=== PATIENT | male | born 1975 | race Caucasian/White ===

== ENCOUNTER 2020-07-07 11:53 | Emergency (ER) | payer SELFPAY ==
[2020-07-07] MEDS ORDERED: ONDANSETRON 4 MG/2 ML INJ IV ONE (12:11)
[2020-07-07] MEDS ORDERED: methylPREDNISolone Sod Succinate 125 MG/2 ML INJ IV ONE (12:11)
[2020-07-07] MEDS ORDERED: SODIUM CHLORIDE 0.9% 1000 ML 1,000 ML IV ONE ×2 (12:11→12:12)
[2020-07-07] MEDS ORDERED: FAMOTIDINE 20 MG/2 ML INJ IV ONE (12:11)
--- NOTE | 2020-07-07 12:36 | Emergency Department Report ---
HPI - General Chief Complaint: Allergic Reaction Time Seen by Provider: 07/07/20 11:59 - HPI HPI: 45-year male with a history of chronic headaches presents to the hospital complaints of allergic reaction to unknown allergen. Patient is allergy rash that started slightly after eating chicken and broccoli. He experienced generalized rash/hives with pruritus, nausea, without vomiting, and lightheadedness. He denies throat tightness, tongue swelling, shortness of breath, or wheezing. Patient received Benadryl 50 mg in route with improvement in pruritus but nausea persists. Patient states 4 years ago he had a similar reaction to an unknown substance and was treated at [facility]. Patient currently states that recommend twice a day for chronic headaches and has been taking the same vitamins for about a month. He denies any exposure to any new substances, drugs, or food ED Past Medical Hx - Past Medical History Hx Hypertension: Yes Additional medical history: high cholestrol - Social History Smoking Status: Never Smoker Substance Use Type: Alcohol - Medications Home Medications: Home Medications Medication Instructions Recorded Confirmed Last Taken Type Acetaminophen [Tylenol Arthritis] 650 mg PO Q6HR PRN #30 tablet.er 04/06/18 Unknown Rx Ibuprofen [Motrin] 600 mg PO Q8H PRN #30 tablet 04/06/18 Unknown Rx Metoclopramide [Reglan] 10 mg PO QID PRN #30 tablet 04/06/18 Unknown Rx Famotidine [Pepcid] 20 mg PO BID #10 tablet 07/07/20 Unknown Rx diphenhydrAMINE [Benadryl CAP] 50 mg PO Q8HR PRN #20 capsule 07/07/20 Unknown Rx predniSONE [Deltasone] 20 mg PO BID #10 tab 07/07/20 Unknown Rx ED Review of Systems ROS: Stated complaint: ALLERGIC REACTION Other details as noted in HPI Comment: All other systems reviewed and negative Physical Exam - Physical Exam Vital Signs: Vital Signs 07/07/20 12:05 Temperature 97.3 F L Pulse Rate 63 Respiratory 18 Rate Blood Pressure 92/55 [Right] O2 Sat by Pulse 99 Oximetry Physical Exam: General: No acute distress Head: Atraumatic Eyes: normal appearance ENT: Moist mucous membranes, no tongue swelling or posterior pharyngeal swelling. No stridor Neck: Normal appearance, no midline tenderness Chest: Clear to auscultation bilaterally CV: Regular rate and rhythm Abdomen: Soft, normal bowel sounds, nontender, nondistended, no rebound or guarding Back: Normal inspection Extremity: Normal inspection, full range of motion Neuro: Alert O x 3, no facial asymmetry, speech clear, no gross motor sensory deficit Psych: Appropriate behavior Skin: Generalized hives ED Course Vital Signs 07/07/20 12:05 Temperature 97.3 F L Pulse Rate 63 Respiratory 18 Rate Blood Pressure 92/55 [Right] O2 Sat by Pulse 99 Oximetry ED Medical Decision Making - Medical Decision Making Patient observed in the ED for nearly 4 hours and had improvement in allergic reaction symptoms after receiving EMS Benadryl dose followed by ED dose of Solu- Medrol and Pepcid. Hives almost completely resolved with no respiratory symptoms. Patient received 2 L of normal saline. Mild hypotension improved prior to discharge and patient ambulated in the ED prior to discharge without complaints of dizziness Critical Care Time: No Critical care attestation.: If time is entered above; I have spent that time in minutes in the direct care of this critically ill patient, excluding procedure time. ED Disposition Clinical Impression: Allergic reaction Disposition: DC-01 TO HOME OR SELFCARE Is pt being admited?: No Does the pt Need Aspirin: No Condition: Stable Instructions: Allergies, Adult Additional Instructions: Take the medication as prescribed. Follow-up with your doctor or doctor/clinic provided. Return if symptoms worsen as indicated by your discharge instructions. At this point is unclear what stimulated your allergic reaction. Follow-up with maitre d' for further testing. Use EpiPen if you develop severe allergic symptoms such as shortness of breath, airway swelling, throat tightness, wheezing, or passing out. Go directly to the ER for further treatment if severe allergic occurs. Prescriptions: diphenhydrAMINE [Benadryl CAP] 50 mg PO Q8HR PRN #20 capsule PRN Reason: Allergic Reaction predniSONE [Deltasone] 20 mg PO BID #10 tab Famotidine [Pepcid] 20 mg PO BID #10 tablet Referrals: PRIMARY CARE, [Primary Care Provider] - 3-5 Days [facility] [Provider Group] - 3-5 Days [facility] [Provider Group] - 3-5 Days Time of Disposition: 16:12
[2020-07-07 17:07] VITALS: BP 109/80
== END 2020-07-07 16:52 | disposition home or self-care (01) ==
LOC: ED 11:53
DX: T78.1XXA Other adverse food reactions, not elsewhere classified, initial encounter (principal); I10 Essential (primary) hypertension; E78.00 Pure hypercholesterolemia, unspecified; Z79.899 Other long term (current) drug therapy; Y93.89 Activity, other specified
CPT/HCPCS: 99283; J2405; J2930; J7030